=== PATIENT | male | born 1965 | race Caucasian/White ===

== ENCOUNTER 2025-03-17 17:25 | Emergency (ER) | payer BC ==
[~2025-03-17] VITALS: Ht 177.8 cm; Wt 88.5 kg
[2025-03-17] MEDS ORDERED: CLON0.5T PO (17:42)
[2025-03-17] MEDS ORDERED: ROSU20TA2 PO (17:42)
[2025-03-17] MEDS ORDERED: OMEP20CA15 PO (17:42)
[2025-03-17] MEDS ORDERED: LINA145C PO (17:42)
[2025-03-17] MEDS ORDERED: PROP20TA7 PO (17:42)
[2025-03-17] MEDS ORDERED: HYDR4TAB4 PO (17:42)
[2025-03-17] MEDS ORDERED: APIX5TAB PO (17:43)
[2025-03-17 18:49] VITALS: BP 134/89; TEMP 97.9; O2SAT 99
== END 2025-03-17 18:36 | disposition home or self-care (01) ==
LOC: ER 17:25
DX: S06.0X0A Concussion without loss of consciousness, initial encounter (principal); F17.210 Nicotine dependence, cigarettes, uncomplicated; J44.9 Chronic obstructive pulmonary disease, unspecified; K21.9 Gastro-esophageal reflux disease without esophagitis; K20.90 Esophagitis, unspecified without bleeding; Z79.01 Long term (current) use of anticoagulants; Z79.899 Other long term (current) drug therapy; Z86.718 Personal history of other venous thrombosis and embolism; Z87.19 Personal history of other diseases of the digestive system; Z88.7 Allergy status to serum and vaccine; Z91.041 Radiographic dye allergy status; Z87.39 Personal history of other diseases of the musculoskeletal system and connective tissue; Z88.8 Allergy status to other drugs, medicaments and biological substances; W21.13XA Struck by golf club, initial encounter; Y93.89 Activity, other specified; Y92.89 Other specified places as the place of occurrence of the external cause; Y99.8 Other external cause status
CPT/HCPCS: 70450; A4606; A4663